=== PATIENT | female | born 1990 | race Caucasian/White ===

== ENCOUNTER → 2024-07-29 07:41 | Outpatient (REF) | payer OTHER, SELFPAY | LOC: HWRAD 07:41 | PROVIDERS: ATTENDING PHYSICIAN Nurse Practitioner Family; FAMILY PHYSICIAN Family Medicine | DX: O09.521 Supervision of elderly multigravida, first trimester (principal) | CPT/HCPCS: 76801 ==

== ENCOUNTER → 2024-08-18 16:51 | Outpatient (REF) | payer OTHER, SELFPAY | LOC: PNTC 16:51 | PROVIDERS: ATTENDING PHYSICIAN Obstetrics & Gynecology | DX: Z36.0 Encounter for antenatal screening for chromosomal anomalies (principal); Z36.82 Encounter for antenatal screening for nuchal translucency; Z36.9 Encounter for antenatal screening, unspecified | CPT/HCPCS: 76801; 76813 ==

== ENCOUNTER → 2024-09-08 06:56 | Outpatient (REF) | payer OTHER, SELFPAY | LOC: PNTC 06:56 | PROVIDERS: ATTENDING PHYSICIAN Obstetrics & Gynecology | DX: O99.210 Obesity complicating pregnancy, unspecified trimester (principal); O09.529 Supervision of elderly multigravida, unspecified trimester | CPT/HCPCS: 76805 ==

== ENCOUNTER → 2024-10-09 06:51 | Outpatient (REF) | payer OTHER, SELFPAY | LOC: PNTC 06:51 | PROVIDERS: ATTENDING PHYSICIAN Obstetrics & Gynecology | DX: O09.519 Supervision of elderly primigravida, unspecified trimester (principal); O99.210 Obesity complicating pregnancy, unspecified trimester | CPT/HCPCS: 76811 ==

== ENCOUNTER → 2024-11-06 16:43 | Outpatient (REF) | payer OTHER, SELFPAY | LOC: PNTC 16:43 | PROVIDERS: ATTENDING PHYSICIAN Obstetrics & Gynecology | DX: O99.210 Obesity complicating pregnancy, unspecified trimester (principal) | CPT/HCPCS: 76816 ==

== ENCOUNTER → 2024-12-02 16:34 | Outpatient (REF) | payer OTHER, SELFPAY | LOC: PNTC 16:34 | PROVIDERS: ATTENDING PHYSICIAN Obstetrics & Gynecology | DX: O09.519 Supervision of elderly primigravida, unspecified trimester (principal); O99.210 Obesity complicating pregnancy, unspecified trimester | CPT/HCPCS: 76816 ==

== ENCOUNTER → 2024-12-22 16:53 | Outpatient (REF) | payer OTHER, SELFPAY | LOC: PNTC 16:53 | PROVIDERS: ATTENDING PHYSICIAN Obstetrics & Gynecology | DX: O99.210 Obesity complicating pregnancy, unspecified trimester (principal) | CPT/HCPCS: 76816 ==

== ENCOUNTER → 2025-01-01 16:29 | Outpatient (REF) | payer OTHER, SELFPAY | LOC: PNTC 16:29 | PROVIDERS: ATTENDING PHYSICIAN Obstetrics & Gynecology | DX: O13.9 Gestational [pregnancy-induced] hypertension without significant proteinuria, unspecified trimester (principal) | CPT/HCPCS: 59025 ==

== ENCOUNTER → 2025-01-05 16:28 | Outpatient (REF) | payer OTHER, SELFPAY | LOC: PNTC 16:28 | PROVIDERS: ATTENDING PHYSICIAN Obstetrics & Gynecology | DX: O09.519 Supervision of elderly primigravida, unspecified trimester (principal); O99.210 Obesity complicating pregnancy, unspecified trimester | CPT/HCPCS: 59025 ==

== ENCOUNTER → 2025-01-12 16:36 | Outpatient (REF) | payer OTHER, SELFPAY | LOC: PNTC 16:36 | PROVIDERS: ATTENDING PHYSICIAN Obstetrics & Gynecology | DX: O10.119 Pre-existing hypertensive heart disease complicating pregnancy, unspecified trimester (principal) | CPT/HCPCS: 59025; 76816 ==

== ENCOUNTER 2025-01-16 09:00 | Observation (INO) | payer OTHER, SELFPAY ==
[2025-01-16 09:12] VITALS: BMI 34.1
[2025-01-16 09:14] VITALS: BP 136/75
== END 2025-01-16 10:32 | disposition home or self-care (01) ==
LOC: LDRP 09:00
PROVIDERS: ADMITTING PHYSICIAN Obstetrics & Gynecology; FAMILY PHYSICIAN Family Medicine
DX: O36.8130 Decreased fetal movements, third trimester, not applicable or unspecified (principal); Z3A.34 34 weeks gestation of pregnancy; O10.013 Pre-existing essential hypertension complicating pregnancy, third trimester; O98.313 Other infections with a predominantly sexual mode of transmission complicating pregnancy, third trimester; A60.00 Herpesviral infection of urogenital system, unspecified; Z88.0 Allergy status to penicillin
CPT/HCPCS: 59025

== ENCOUNTER → 2025-01-19 16:24 | Outpatient (REF) | payer OTHER, SELFPAY | LOC: PNTC 16:24 | PROVIDERS: ATTENDING PHYSICIAN Obstetrics & Gynecology | DX: O13.9 Gestational [pregnancy-induced] hypertension without significant proteinuria, unspecified trimester (principal) | CPT/HCPCS: 59025; 76815 ==

== ENCOUNTER 2025-01-22 04:04 | Emergency (ER) | payer OTHER, SELFPAY ==
[2025-01-22 04:07] VITALS: BP 125/88
[2025-01-22 04:37] VITALS: BP 122/81
[2025-01-22 04:38] VITALS: BMI 36.0
[2025-01-22 05:28] VITALS: BP 118/86
[2025-01-22] MEDS: NSS 1000 IV (05:32)
--- NOTE | 2025-01-22 05:50 | ED.GENMED ---
History of Present Illness
General
Chief Complaint: Abdominal Symptoms
Source: patient
Exam Limitations: none
Time Seen by Provider: 01/22/25 05:19
Nursing documentation reviewed up to this point in time: agreed with
History of Present Illness
History of Present Illness:
This is a 34-year-old woman 4 para 3-0-0-3 currently 36 weeks with EDC of February 22. She follows with [facility]. She complains of ongoing diarrhea that began 4 to 5 days ago. 2 of her children have had similar
diarrhea and she brought her daughter to this ED for evaluation 2 days ago with similar diarrhea. She admits to intermittent nausea but has had no vomiting. Intermittent chills and has noted a low-grade fever.
Daughter required IV fluids and is now feeling improved.
No recent antibiotic use nor recent travel.
She denies abdominal pain and has had good movement. No vaginal discharge nor bleeding.
She does admit to some palpitations and feeling lightheaded, dizzy with standing but no syncope nor falls. She denies bloody stools.
Her only daily medications are vitamins and low-dose aspirin.
Prior history of preeclampsia but no hypertensive issues with this .
Past History
Past History
ED Past Medical History: Asthma and Other (Acne; preeclampsia with previous pregnancies. )
ED Past Surgical History: Cholecystectomy
Social History
Tobacco: Non-smoker
Alcohol: None
Personal:
Living: with family
Employment: Employed
Family History
Family History: Other (Noncontributory)
Phy Exam
Physical Exam
Physical Exam:
GENERAL: 34-year-old woman appears her stated age, awake and alert, pleasant, appears in no acute distress.
EYE: . anicteric
NECK: Supple, nontender, no meningismus, no significant adenopathy.
ENT: posterior pharynx is clear, oral mucosa is mildly dry. No rhinorrhea.
CARDIAC: Regular rhythm, tachycardic. no murmur.
LUNGS: Clear breath sounds bilaterally, no acute respiratory distress, no wheezes/rales/rhonchi
ABDOMEN: Gravid, soft, nondistended, without focal tenderness, no r/g, no cvat. normoactive BS.
NEUROLOGICAL: Alert and oriented x3, no focal neuro deficits.
SKIN: Warm and dry, normal color, skin intact. No rash.
MUSCULOSKELETAL: No C/C/E. peripheral pulses are full and equal b/l. No palpable tenderness.
PSYCH: Normal and appropriate interaction.
Course
Orders/Labs/Results
Orders:
Orders
01/22/25 04:30
Heart Tones ONCE
01/22/25 04:39
Non-stress Test Routine
Reason for Exam: diarrhea
01/22/25 05:20
0.9% Sodium Chloride 1000 ml [Nss] 1,000 ml IV BOLUS
01/22/25 05:25
Complete Blood Count/With Diff Urgent
Comprehensive Metabolic Panel Urgent
01/22/25 05:30
Cardiac Monitoring- Treatment ONCE
01/22/25 06:41
Potassium Chloride [KCl] 40 meq PO NOW STA
01/22/25 06:45
Urinalysis Reflex To Culture Urgent
Norovirus by PCR Urgent
ELIAS Source: Feces/Stool
Specimen Description:
Stool Culture Urgent
ELIAS Source: Feces/Stool
Specimen Description:
Abnormal Lab Results
01/22/25
05:25
RBC 3.82 L 10^6/uL
(4.20-5.40)
Hgb 11.9 L g/dL
(12.0-16.0)
Hct 33.6 L %
(37.0-47.0)
MCH 31.2 H pg
(27.0-31.0)
MPV 11.7 H fL
(7.4-10.4)
Abs Immat Gran (auto) 0.1 H 10^3/uL
(0-0.05)
Absolute Neuts (auto) 8.1 H 10^3/uL
(1.4-6.5)
Absolute Lymphs (auto) 1.0 L 10^3/uL
(1.2-3.4)
Absolute Monos (auto) 0.7 H 10^3/uL
(0.1-0.6)
Immature Gran % 0.7 H %
(0-0.5)
Neutrophils % 82.5 H %
(42.2-75.2)
Lymphocytes % 9.8 L %
(20.5-51.1)
Sodium 133 L mmol/L
(135-145)
Potassium 3.0 L mmol/L
(3.5-5.1)
Carbon Dioxide 17 L mmol/L
(22-30)
BUN 4 L mg/dl
(7-17)
Creatinine 0.5 L mg/dL
(0.6-1.0)
Alkaline Phosphatase 140 H U/L
(38-126)
Total Protein 5.9 L g/dl
(6.3-8.2)
Albumin 3.4 L g/dl
(3.5-5.0)
01/22/25 05:25
01/22/25 05:25
Vital Signs
Initial and Last Documented VS:
Initial Vital Signs
Temp Pulse Resp BP Pulse Ox
98.8 F 140 20 125/88 99
01/22/25 04:07 01/22/25 04:07 01/22/25 04:07 01/22/25 04:07 01/22/25 04:07
Last Documented Vital Signs
Temp Pulse Resp BP Pulse Ox
98.8 F 108 22 124/87 98
01/22/25 04:07 01/22/25 06:30 01/22/25 06:30 01/22/25 06:00 01/22/25 06:15
MDM/Problems Addressed
Differential Diagnosis Includes:
Concern for acute gastroenteritis, 2 children with similar GI symptoms last week.
Concern for dehydration, electrolyte abnormality.
Current symptoms did not appear to be affecting her current but we will check monitor/nonstress test while in the ED.
[facility] has been notified and request bedside nonstress test as above.
Will initiate IV fluids, check labs.
If stool collected will check stool for norovirus, cultures.
Chronic conditions affecting care: Other (Currently at 36 weeks.)
*Pulse Oximetry
Patient hypoxic: no
*Hi Lift Operator Interpretation
Rate: tachycardiac
Interpretation: abnormal
Rhythm: sinus
*Critical Care Note
Total Time (30-74mins, 75-104mins- exclusive of procedures): Not Applicable
Update Note
Update Note:
06:45
Patient feeling improved, tolerating sips of water, nausea has resolved.
Sinus tachycardia near resolved. She remains afebrile.
She continues to deny abdominal pain. She has passed 1 small loose stool. Will send for stool cultures, stool for norovirus.
Nonstress test completed. Awaiting official results but patient herself was told it was normal.
Labs remarkable for mild hypokalemia, mild acidosis without anion gap. BUN and creatinine are normal.
Will replete potassium orally.
Recommend limiting diet to clear liquids today, soft bland foods, brat diet discussed.
Prompt follow-up with [facility] for recheck.
ED Attending Note
-
Portions of this chart may have been created with voice recognition software.� Occasional wrong word or��sound alike� substitutions may have occurred due to the inherent limitations of voice recognition software.
Discharge Plan
Departure
Patient Disposition: Home (Routine Discharge)
Date of Disposition: 01/22/25
Time of Disposition: 06:49
Patient with high blood pressure during this ER visit?: No
Condition: Good
Discharge Problem:
Acute gastroenteritis, Acute hypokalemia, 36 weeks gestation of
Instructions: Viral gastroenteritis in adults, Clear Liquid Diet, Acute Diarrhea
Prescriptions:
No Action
capsule
1 cap PO DAILY
aspirin
81 mg PO DAILY
Referrals:
Naveen Weinstein Jr., DO [Family Provider] - Call in 1-3 days for appt
Interventions
Interventions:
*Risk Screen - Suicide Last Done: 01/22/25 04:07
*General Assessment Last Done: 01/22/25 04:44
*Neglect/Abuse Screening Last Done: 01/22/25 04:07
*ED- Fall Risk Assessment Last Done: 01/22/25 04:07
*ED COVID-19 Vaccine History Last Done: 01/22/25 04:07
XU-Zdviin-Utwkvxbgot Assessment Last Done: 01/22/25 04:38
Discharge Date and Time
Print Language: OCCITAN
[2025-01-22 06:00] VITALS: BP 124/87
[2025-01-22 06:01] LABS: % Basophils 0.1 % (0-2); % Immature Granulocytes 0.7 % (0-0.5); % Lymphocytes 9.8 % (20.5-51.1); % Monocytes 6.9 % (1.7-9.3); % Neutrophils 82.5 % (42.2-75.2); Absolute Immature Granulocytes 0.1 10^3/uL (0-0.05); Absolute Monocytes 0.7 10^3/uL (0.1-0.6); Absolute Neutrophils 8.1 10^3/uL (1.4-6.5); Hematocrit 33.6 % (37.0-47.0); Hemoglobin 11.9 g/dL (12.0-16.0); Mean Corp Hgb Conc. 35.4 g/dL (33.0-37.0); Mean Corpuscular Hgb 31.2 pg (27.0-31.0); Mean Platelet Volume 11.7 fL (7.4-10.4); Nucleated Red Blood Cells % 0 %; Platelet Count 141 10^3/uL (130-400); Red Blood Cell Count 3.82 10^6/uL (4.20-5.40); Red Cell Dist. Width 13.5 % (11.5-14.5); White Blood Cell Count 9.8 10^3/uL (4.8-10.8)
[2025-01-22 06:08] LABS: ALT (SGPT) 22 U/L (0-35); AST (SGOT) 31 U/L (14-36); Albumin 3.4 g/dl (3.5-5.0); Alkaline Phosphatase 140 U/L (38-126); Blood Urea Nitrogen 4 mg/dl (7-17); Calcium 8.8 mg/dl (8.4-10.2); Carbon Dioxide 17 mmol/L (22-30); Chloride 106 mmol/L (98-107); Estimated Creatinine Clearance > 125 ml/min; Glucose 80 mg/dl (70-99); Sodium 133 mmol/L (135-145); Total Bilirubin 0.5 mg/dl (0.2-1.3); Total Protein 5.9 g/dl (6.3-8.2); eGFR > 60.00
[2025-01-22] MEDS: KCL 40 MEQ PO (06:44)
[2025-01-22 07:37] LABS: Urine Albumin 1+ (Neg - Trace); Urine Bilirubin Negative (Negative); Urine Character Slightly Cloudy (Clear); Urine Glucose Negative (Negative); Urine Ketone 3+ (Negative); Urine Leukocyte Negative (Negative); Urine Nitrite Negative (Negative); Urine Occult Blood 1+ (Negative); Urine Specific Gravity 1.005 (<1.030); Urine Urobilinogen Negative (Neg - 1+)
[2025-01-22 07:43] LABS: Urine Color Straw
[2025-01-22 07:45] VITALS: BP 114/77
[2025-01-22 07:51] LABS: Urine Bacteria Few (Negative); Urine Red Blood Cell 0-2 /HPF (0-2); Urine Squamous Cell >30 /LPF (Few); Urine White Cell 0-2 /HPF (0-5)
== END 2025-01-22 07:47 | disposition home or self-care (01) ==
LOC: EMR 04:04
PROVIDERS: EMERGENCY PHYSICIAN Emergency Medicine; FAMILY PHYSICIAN Family Medicine
DX: O99.613 Diseases of the digestive system complicating pregnancy, third trimester (principal); K52.9 Noninfective gastroenteritis and colitis, unspecified; O99.283 Endocrine, nutritional and metabolic diseases complicating pregnancy, third trimester; E87.6 Hypokalemia; E87.20 Acidosis, unspecified; O99.513 Diseases of the respiratory system complicating pregnancy, third trimester; J45.909 Unspecified asthma, uncomplicated; O09.523 Supervision of elderly multigravida, third trimester; Z3A.36 36 weeks gestation of pregnancy
CPT/HCPCS: 96360; 99284; 80053; 81003; 81015; 85025; 87045; 87046; 87427; 87798

== ENCOUNTER → 2025-01-26 16:30 | Outpatient (REF) | payer OTHER, SELFPAY | LOC: PNTC 16:30 | PROVIDERS: ATTENDING PHYSICIAN Obstetrics & Gynecology | DX: O13.9 Gestational [pregnancy-induced] hypertension without significant proteinuria, unspecified trimester (principal) | CPT/HCPCS: 59025 ==

== ENCOUNTER 2025-01-28 17:46 | Observation (INO) | payer OTHER, SELFPAY ==
[2025-01-28 18:16] LABS: Urine Albumin 2+ (Neg - Trace); Urine Bilirubin Negative (Negative); Urine Character Slightly Cloudy (Clear); Urine Color Yellow; Urine Glucose Negative (Negative); Urine Ketone Negative (Negative); Urine Leukocyte 1+ (Negative); Urine Nitrite Negative (Negative); Urine Occult Blood 2+ (Negative); Urine Urobilinogen Negative (Neg - 1+)
[2025-01-28 18:25] VITALS: BP 131/78; BMI 35.3
[2025-01-28 18:29] LABS: Hematocrit 32.9 % (37.0-47.0); Hemoglobin 11.6 g/dL (12.0-16.0); Mean Corp Hgb Conc. 35.3 g/dL (33.0-37.0); Mean Corpuscular Hgb 31.6 pg (27.0-31.0); Mean Corpuscular Volume 89.6 fL (81.0-99.0); Mean Platelet Volume 11.8 fL (7.4-10.4); Platelet Count 187 10^3/uL (130-400); Red Blood Cell Count 3.67 10^6/uL (4.20-5.40); Red Cell Dist. Width 13.7 % (11.5-14.5); White Blood Cell Count 8.9 10^3/uL (4.8-10.8)
[2025-01-28 18:34] LABS: Protein/creatinine Ratio 0.3; Urine Protein 28 mg/dl
[2025-01-28 18:35] LABS: Urine Bacteria Moderate (Negative); Urine Red Blood Cell 0-2 /HPF (0-2); Urine Squamous Cell >30 /LPF (Few)
[2025-01-28 18:44] LABS: ALT (SGPT) 22 U/L (0-35); AST (SGOT) 25 U/L (14-36); Albumin 3.3 g/dl (3.5-5.0); Alkaline Phosphatase 145 U/L (38-126); Blood Urea Nitrogen 7 mg/dl (7-17); Calcium 9.2 mg/dl (8.4-10.2); Carbon Dioxide 24 mmol/L (22-30); Chloride 108 mmol/L (98-107); Estimated Creatinine Clearance > 125 ml/min; Glucose 77 mg/dl (70-99); Potassium 4.3 mmol/L (3.5-5.1); Sodium 137 mmol/L (135-145); Total Bilirubin 0.4 mg/dl (0.2-1.3); Uric Acid 4.4 mg/dl (2.5-6.2); eGFR > 60.00
== END 2025-01-28 20:36 | disposition home or self-care (01) ==
LOC: LDRP 17:46
PROVIDERS: ADMITTING PHYSICIAN Obstetrics & Gynecology
DX: O11.3 Pre-existing hypertension with pre-eclampsia, third trimester (principal); O10.913 Unspecified pre-existing hypertension complicating pregnancy, third trimester; Z3A.36 36 weeks gestation of pregnancy
CPT/HCPCS: 80053; 81003; 81015; 82570; 84156; 84550; 85027; 86850; 86900; 86901; 87070; G0378

== ENCOUNTER 2025-01-30 08:52 | Observation (INO) | payer OTHER, SELFPAY ==
[2025-01-30 09:07] VITALS: BP 141/83; BMI 34.6
[2025-01-30] MEDS: TYLENOL 1000 MG PO (09:21)
== END 2025-01-30 10:06 | disposition home or self-care (01) ==
LOC: LDRP 08:52
PROVIDERS: ADMITTING PHYSICIAN Obstetrics & Gynecology
DX: O11.3 Pre-existing hypertension with pre-eclampsia, third trimester (principal); Z3A.36 36 weeks gestation of pregnancy; R51.9 Headache, unspecified; Z79.82 Long term (current) use of aspirin; Z88.0 Allergy status to penicillin
CPT/HCPCS: 59025; G0378

== ENCOUNTER 2025-02-02 07:29 | Inpatient (IN) | payer OTHER, SELFPAY ==
[2025-02-02 07:38] VITALS: BP 140/89; BMI 32.9
[2025-02-02] MEDS: LR 1000 IV ×2 (08:59→14:52)
[2025-02-02 09:21] LABS: % Basophils 0.2 % (0-2); % Eosinophils 0.2 % (0-6); % Lymphocytes 19.6 % (20.5-51.1); % Monocytes 4.8 % (1.7-9.3); % Neutrophils 74.2 % (42.2-75.2); Absolute Immature Granulocytes 0.1 10^3/uL (0-0.05); Absolute Lymphocytes 1.8 10^3/uL (1.2-3.4); Absolute Monocytes 0.4 10^3/uL (0.1-0.6); Absolute Neutrophils 6.8 10^3/uL (1.4-6.5); Hematocrit 33.9 % (37.0-47.0); Mean Corp Hgb Conc. 35.4 g/dL (33.0-37.0); Mean Corpuscular Hgb 32.2 pg (27.0-31.0); Mean Corpuscular Volume 90.9 fL (81.0-99.0); Mean Platelet Volume 11.9 fL (7.4-10.4); Nucleated Red Blood Cells % 0 %; Platelet Count 170 10^3/uL (130-400); Red Blood Cell Count 3.73 10^6/uL (4.20-5.40); White Blood Cell Count 9.1 10^3/uL (4.8-10.8)
[2025-02-02] MEDS: PITOCIN 30 UNITS/NSS 500 ML IV ×2 (09:39→17:07)
[2025-02-02 09:54] LABS: ALT (SGPT) 23 U/L (0-35); AST (SGOT) 27 U/L (14-36); Albumin 3.4 g/dl (3.5-5.0); Alkaline Phosphatase 139 U/L (38-126); Blood Urea Nitrogen 8 mg/dl (7-17); Calcium 9.3 mg/dl (8.4-10.2); Carbon Dioxide 22 mmol/L (22-30); Chloride 106 mmol/L (98-107); Estimated Creatinine Clearance > 125 ml/min; Glucose 85 mg/dl (70-99); Potassium 4.1 mmol/L (3.5-5.1); Sodium 136 mmol/L (135-145); Total Bilirubin 0.4 mg/dl (0.2-1.3); Total Protein 6.1 g/dl (6.3-8.2); eGFR > 60.00
[2025-02-02] MEDS: SUBLIMAZE 100 MCG EPIDURAL (14:40)
[2025-02-02] MEDS: FENTANYL/BUPIVACAINE 100 EPIDURAL (14:40)
[2025-02-02] MEDS: PRENATAL PLUS 1 TABLET PO (21:58)
[2025-02-02] MEDS: TYLENOL 650 MG PO (23:38)
[2025-02-03] MEDS: TYLENOL 650 MG PO (04:07)
[2025-02-03 04:40] LABS: Hematocrit 31.6 % (37.0-47.0); Hemoglobin 11.2 g/dL (12.0-16.0)
[2025-02-03] MEDS: SENOKOT-S 1 TABLET PO (08:33)
[2025-02-03] MEDS: MOTRIN 600 MG PO (08:33)
== END 2025-02-03 17:19 | disposition home or self-care (01) | DRG 807 ==
LOC: LDRP 07:29
PROVIDERS: ADMITTING PHYSICIAN Obstetrics & Gynecology
PROC: 10E0XZZ Delivery of Products of Conception, External Approach (ICD-10-PCS; 2025-02-02)
PROC: 3E033VJ Introduction of Other Hormone into Peripheral Vein, Percutaneous Approach (ICD-10-PCS; 2025-02-02)
PROC: 0HQ9XZZ Repair Perineum Skin, External Approach (ICD-10-PCS; 2025-02-02)
DX: O14.04 Mild to moderate pre-eclampsia, complicating childbirth (principal); Z37.0 Single live birth; O70.0 First degree perineal laceration during delivery; Z3A.37 37 weeks gestation of pregnancy
CPT/HCPCS: 88307; 80053; 85014; 85018; 85025; 86780; 86850; 86900; 86901; 93005

== ENCOUNTER 2025-06-19 06:09 | Day surgery (SDC) | payer OTHER, SELFPAY ==
[2025-06-03 11:23] LABS: Hematocrit 41.5 % (37.0-47.0); Hemoglobin 14.0 g/dL (12.0-16.0); Mean Corp Hgb Conc. 33.7 g/dL (33.0-37.0); Mean Corpuscular Volume 91.0 fL (81.0-99.0); Nucleated Red Blood Cells % 0 %; Platelet Count 218 10^3/uL (130-400); Red Cell Dist. Width 13.0 % (11.5-14.5)
[2025-06-03 11:49] LABS: Blood Urea Nitrogen 19 mg/dl (7-17); Calcium 9.7 mg/dl (8.4-10.2); Carbon Dioxide 28 mmol/L (22-30); Chloride 105 mmol/L (98-107); Glucose 82 mg/dl (70-99); Potassium 4.5 mmol/L (3.5-5.1); Sodium 140 mmol/L (135-145); eGFR > 60.00
[2025-06-03 12:03] LABS: Beta HCG Quantitative < 2.39 mIU/ml
[2025-06-19] VITALS (10 sets, daily range): BP systolic 103–132; BP diastolic 60–76
[2025-06-19] MEDS: NEURONTIN 300 MG PO (09:52)
[2025-06-19] MEDS: TYLENOL 1000 MG PO (09:52)
[2025-06-19] MEDS: NORMOSOL-R/PLASMALYTE-A 1000 IV (09:53)
--- NOTE | 2025-06-19 12:28 | W.IMMPOSTOP ---
Surgical Immed Post Op Note
-
Primary Surgeon: Dorota Montoya DO
Video Production Specialist: Humaira Light PA-C
Pre-op Diagnosis: Multiparity, request for permanent sterilization
Post-op Diagnosis: Same; abdominal wall endometriosis
Procedure Performed: Robotic laparoscopic bilateral salpingectomy, fulguration endometriosis
Anesthesia Type: General ET Dr. Reyes
Specimen / Cultures: Bilateral fallopian tubes
Estimated Blood Loss: Less than 5 mL
Urine output 300 mL clear yellow urine.
Complications: None
Operative Findings: Globular shaped normal size uterus, normal-appearing bilateral fallopian tubes and bilateral ovaries. Left ovary has a 1 cm follicle. Right lateral abdominal wall superficial endometriosis implants 1 to 2 mm each, approximately
5 total Vela dot-like lesions-these were fulgurated. No pelvic endometriosis.
Counts correct x 2
Stable to recovery.
--- NOTE | 2025-06-19 12:39 | W.IMMPOSTOP ---
Surgical Immed Post Op Note
-
Primary Surgeon: Jessica
Assisting Surgeon: None
Pre-op Diagnosis: Umbilical hernia
Post-op Diagnosis: Umbilical hernia
Procedure Performed: Robotic umbilical hernia repair with mesh
Anesthesia Type: General
Specimen / Cultures: None
Estimated Blood Loss: 3 cc
Complications: None
Operative Findings:
1. 1.5 cm fascial defect, preperitoneal fat
2. Bard soft 7.5 x 10 cm pre-peritoneal mesh
== END 2025-06-19 15:09 | disposition home or self-care (01) ==
LOC: SDS 06:09
PROVIDERS: ATTENDING PHYSICIAN Obstetrics & Gynecology; FAMILY PHYSICIAN Family Medicine; REFERRING PHYSICIAN Surgery
DX: K42.9 Umbilical hernia without obstruction or gangrene (principal); Z30.2 Encounter for sterilization
CPT/HCPCS: 58661; 49591; 36415; 80048; 84702; 85025; 86850; 86900; 86901; 88302; 93005